=== PATIENT | female | born 1975 | race Caucasian/White ===

== ENCOUNTER 2016-10-15 16:04 | Emergency (ER) ==
[2016-10-15 16:22] LABS: MANUAL DIFF NEEDED? NO
[2016-10-15 16:24] LABS: BASO% 0.3 % (0.0-0.8); EOS# 0.07 X1000 (0.0-0.7); EOS% 0.7 % (0.0-10.0); HEMATOCRIT 38.8 % (37.0-47.0); HEMOGLOBIN 12.7 g/dL (12.0-16.0); IMM GRAN# 0.02 X1000 (0.0-0.04); IMM GRAN% 0.2 % (0.0-0.5); LYMPH% 14.3 % (20.5-51.1); MCH 26.9 PG (27-31); MCHC 32.7 g/dL (33-37); MCV 82.2 FL (81-99); MONO# 0.74 X1000 (0.11-0.59); MONO% 7.1 % (1.7-9.3); MPV 10.3 FL (7.4-10.4); NEUT% 77.4 % (42.2-75.2); PLT 323 X1000 (130-400); RBC 4.72 XMIL (4.2-5.4)
[2016-10-15 16:30] LABS: URINE CULTURE NEEDED? NO; URINE MICRO REVIEW NEEDED? NO; URINE SOURCE CLEAN CATCH
[2016-10-15 16:37] LABS: BILIRUBIN URINE NEGATIVE (NEGATIVE); BLOOD URINE NEGATIVE (NEGATIVE); COLOR YELLOW; GLUCOSE URINE NEGATIVE (NEGATIVE); LEUKOCYTES URINE NEGATIVE (NEGATIVE); NITRITE URINE NEGATIVE (NEGATIVE); PROTEIN URINE NEGATIVE (NEGATIVE); SP GRAVITY URINE 1.018; TURBIDITY URINE CLEAR (CLEAR); UR EPITHELIAL CELLS <10 /HPF (<10); URINE BACTERIA 1+ /HPF; URINE RBC <10 /HPF (<10); URINE WBC <10 /HPF (<10); UROBILINOGEN URINE NORMAL (NORMAL)
[2016-10-15 16:38] LABS: AGAP 13; ALBUMIN 4.3 g/dL (3.5-5.0); ALKALINE PHOSPHATASE 86 U/L (32-104); AMYLASE 55 U/L (20-200); BUN 8 mg/dL (8-22); CALCIUM 9.1 mg/dL (8.8-10.2); CHLORIDE 100 mmol/L (98-107); COSMO 270; GOT 14 U/L (10-30); GPT 9 U/L (10-36); LIPASE 21 U/L (13-60); POTASSIUM 3.9 mmol/L (3.5-5.1); SODIUM 136 mmol/L (136-145); TCO2 23 mmol/L (25-35); TOTAL BILIRUBIN 0.39 mg/dL (0.20-1.00); TOTAL PROTEIN 7.3 g/dL (6.3-8.3)
--- NOTE | 2016-10-15 17:14 | PROVIDER DOCUMENTATION ---
HPI-Abdominal Pain/GI Problem - General Chief Complaint: Abdominal Pain Stated Complaint: ABD PAIN Time Seen by Provider: 10/15/16 17:08 Source: patient Allergies/Adverse Reactions: Patient Allergies Allergy/AdvReac Type Severity Reaction Status Date / Time No Known Allergies Allergy Verified 10/15/16 18:35 Home Medications: Amoxicillin 500 mg PO BID 10/15/16 Clarithromycin [Biaxin] 500 mg PO BID 10/15/16 Metronidazole [Flagyl] 500 mg PO BID 10/15/16 Omeprazole [Prilosec] 40 mg PO DAILY 10/15/16 - History of Present Illness-ABD Nature of Presenting Problems: 41 y/o WM c/o abd. pain x 3 weeks, worse in last 8 hours. Pt states was diagnosed with H. Pylori last week and given amoxicillin, flagyl, biaxin, and omeprazole; has been taking it daily. States that pain is worse today and in epigastric region. Pt states nausea and diarrhea starting x 1 day. States diarrhea x 4 today and 4 yesterday. Denies any radiation. Pain is 4/10 now and 10/10 at it's worst, cramping in nature and intermittent. Pt hasn't eaten anything, but has drank fluids; denies any correlation with worsening pain. Review of Systems - Adult - REVIEW OF SYSTEMS - ADULT Constitutional: reports: no symptoms reported. denies: chills, fever Eyes: reports: no symptoms reported. denies: blurred vision, double vision Ears, Nose, Mouth & Throat: reports: no symptoms reported. denies: ear pain, nose pain Cardiovascular: reports: no symptoms reported. denies: chest pain, palpitations Respiratory: reports: no symptoms reported. denies: dyspnea on exertion, shortness of breath Gastrointestinal: reports: see HPI, abdominal pain, diarrhea, nausea. denies: constipation, rectal bleeding, vomiting Genitourinary: reports: no symptoms reported. denies: dysuria, frequency Musculoskeletal: reports: no symptoms reported. denies: joint pain, joint swelling Integumentary: reports: no symptoms reported. denies: nail changes, rash Neurological: reports: no symptoms reported. denies: numbness, paresthesia Psychiatric: reports: no symptoms reported Endocrine: reports: no symptoms reported. denies: cold intolerance, heat intolerance Hematologic/Lymphatic: reports: no symptoms reported. denies: easy bruising, prolonged bleeding Allergic/Immunologic: reports: no symptoms reported All Other Systems: Reviewed and Negative Past History - Adult - PAST MEDICAL HISTORY-ADULT Review of Records: reports: Nursing Assessment Review, Medications Reviewed - PRIOR SURGERIES/PROCEDURES Surgical/Procedure History: reports: reviewed, not pertinent, cholecystectomy, C -section (x2), other (lithotripsy with stent) - IMMUNIZATION STATUS Childhood Immunizations: See Nurse Assessment Flu Vaccine: See Nurse Assessment - FAMILY HISTORY Family History: reviewed, not pertinent - SOCIAL HISTORY Smoking: cigarettes, less than 1 pack/day Provider spent 3-5 mins advising pt. on dangers of tobacco.: Discussed manners to quit use, and f/u contacts for add'l counseling. Alcohol Use Frequency: never Physical Exam-General - PHYSICAL EXAM-ADULT Initial Vital Signs Reviewed: Yes - CONSTITUTIONAL General Appearance: alert, mild distress - EYES Eyes: pink conjunctivae - HEAD, EARS, NOSE, MOUTH & THROAT HENMT: normocephalic/atraumatic, moist mucous membranes - NECK Neck: normal inspection - RESPIRATORY Respiratory: lungs clear, normal breath sounds. negative: crackles, rales, rhonchi, stridor, wheezing - CARDIOVASCULAR Cardiovascular: regular rate, rhythm. negative: bradycardia, tachycardia - GASTROINTESTINAL (ABDOMEN) Abdominal Exam: normal bowel sounds, soft, tenderness (epigastric- moderate). negative: distended, guarding, rigid, rebound, McBurney's point tenderness, Pagan's sign - MUSCULOSKELETAL Back Exam: no CVA tenderness Extremity: normal gait - SKIN Integumentary: normal color, normal turgor, warm/dry - NEUROLOGIC Neurologic: negative: aphasia - PSYCHIATRIC Psych/Mental Status: normal mood/affect, normal thought content, normal thought process, oriented x 3 Progress - CT/MRI 1 CT Study: Abdomen, Pelvis Impression: See EMR Report (Fecal stasis or impaction. Air and fluid distended bowel: ileus vs. obstruction. No gallbladder. No abscess. No hydronephrosis. -per Dr. Mckeon) Departure - Departure Time of Disposition Order: 19:25 DIAGNOSIS: Ileus Disposition: HOME 01 Certified Medical Emergency: Emergent Condition: Stable Additional Instructions: Take medications as directed. Drink plenty of fluids. Follow up with PCP for recheck in 1-3 days. ED Follow Up Instructions: You have been treated by a care provider in the Emergency Department. These instructions are being provided to you so you can have an understanding of how to care for yourself upon discharge. Upon discharge from the Emergency Department, you are responsible for making arrangements for follow-up care by a physician of your choice. Take all prescribed medications as directed. Return to the Emergency Department immediately for any new or worsening symptoms. You may call the Physician Referral phone number at [phone] to obtain a list of Physicians who are taking new patients. Prescriptions: Bisacodyl [Dulcolax] 10 mg [place] QHS #20 supp Polyethylene Glycol 3350 [Miralax] 17 gm PO DAILY #20 powd.pack Ondansetron Odt [Zofran 8Mg Odt] 8 mg PO Q8H PRN PRN #20 tablet PRN Reason: Nausea Referrals: None,PCP [Primary Care Provider] - Attestation - Physician/ Mid-level Attestation Patient care was provided by Mid-level provider (ROADS SUPERINTENDENT/PA):: Yes Mid-level provider:: Tita Arreola Mid-level documentation review:: The Mid-level provider documentation, treatment plan and medical decision making was reviewed by the physician who agrees with all treatment and medical decision making by the P.
[2016-10-15] MEDS ORDERED: NS 1,000 ML IV ONE (18:36)
[2016-10-15] MEDS ORDERED: ZOFRAN IV ONE (18:36)
[2016-10-15] MEDS ORDERED: CITRATE OF MAGNESIA PO ONE (19:26)
[2016-10-15 19:43] VITALS: BP 108/48
[2016-10-15] MEDS ORDERED: SODIUM CHLORIDE 0.9% 10 ML ONE (20:40)
[2016-10-15] MEDS ORDERED: PROTONIX ONE (20:40)
--- NOTE | 2016-10-16 08:20 | Diag Imaging Result Document ---
PROCEDURE NAME: CT ABD/PELVIS W/ IV CONT ONLY - 10/15/2016 CT OF THE ABDOMEN WITH INTRAVENOUS CONTRAST: FINDINGS: There is some fibrosis or atelectasis in the visible portion of the right middle lobe. The more lateral opacities were not present on 03/15/2016. There has been cholecystectomy since the previous study. There is some apparent mucosal thickening in the gastric fundus which may be due to non-distension. This is similar in appearance to the previous study. There is a fairly large amount of fluid throughout the colon and some small bowel loops with some gaseous dilatation of small bowel loops. There is no evidence of hydronephrosis or mass in the kidneys. There is no evidence of significant adenopathy. The adrenal glands, spleen, and pancreas are within normal limits. There is some stranding in the fat around the ascending colon. There is no evidence of appendicitis. The abdominal aorta is not distended. CT OF THE PELVIS WITH INTRAVENOUS CONTRAST: FINDINGS: There is an IUD in place in the fundal endometrium. There is only a very small amount of free fluid in the pelvis. There are no masses and no evidence of significantly adenopathy is present. There is what appears to be a fluid-filled right femoral hernia which has not changed since the previous study of 03/15/2016. IMPRESSION: Probable enterocolitis.
== END 2016-10-15 20:13 | disposition home or self-care (01) ==
LOC: ED 16:04
DX: K56.7 Ileus, unspecified (principal); R10.13 Epigastric pain; R11.0 Nausea; R19.7 Diarrhea, unspecified; R10.816 Epigastric abdominal tenderness; F17.210 Nicotine dependence, cigarettes, uncomplicated; Z71.6 Tobacco abuse counseling
CPT/HCPCS: 36415; 74177; 80053; 81001; 82150; 83690; 85025; 96374; C9113; J2405; J7030; Q9967; S0164